=== PATIENT | male | born 1945 | race Hispanic/Latino ===

== ENCOUNTER 2018-08-24 04:02 | Inpatient (IN) | payer MEDICARE ==
[2018-08-24] MEDS ORDERED: XYLOCAINE 2% INFILTRATI ONE (04:25)
[2018-08-24] MEDS ORDERED: ATIVAN IV PRN (04:25)
[2018-08-24] MEDS ORDERED: NACL 0.9% IR ONE (04:25)
[2018-08-24 04:41] LABS: Hematocrit 41.3 % (35.5-45.6); Hemoglobin 14.2 gm/dl (11.8-15.2); Mean Corpuscular HGB Conc 34 % (32-34); Mean Corpuscular Volume 101 fl (84-94); Red Cell Distribution Width 13.8 % (13.2-15.2)
[2018-08-24 04:42] LABS: Platelet Count 82 K/mm3 (140-440)
--- NOTE | 2018-08-24 04:57 | XRay Report ---
PROCEDURE: LEFT FOREARM TECHNIQUE: LEFT forearm radiographs, AP and lateral views. CPT 02490 HISTORY: Trauma COMPARISONS: None . FINDINGS: Fracture (s) and/or Dislocation(s): None . Joint space(s): Normal . Soft tissues: Normal . Bone mineralization: Normal . Foreign bodies: None . IMPRESSION: Normal Examination . This document is electronically signed by Derick Sanchez MD., August 24 2018 04:55:02 AM ET
--- NOTE | 2018-08-24 04:58 | XRay Report ---
PROCEDURE: XR HAND 2V LT TECHNIQUE: LEFT hand radiographs, PA and lateral views. HISTORY: fall left hand laceration COMPARISONS: None . FINDINGS: Fracture (s) and/or Dislocation(s): There are nondisplaced fractures of the third distal phalanx. . There is no joint dislocation. Alignment: Normal . Joint space(s): There is advanced degenerative arthrosis of the first carpometacarpal joint. . Soft tissues: There is soft tissue swelling and laceration of the third digit. . Bone mineralization: Normal . Foreign bodies: None . IMPRESSION: There are nondisplaced fractures of the third distal phalanx. . There is no joint dislocation. There is advanced degenerative arthrosis of the first carpometacarpal joint. . There is soft tissue swelling and laceration of the third digit. . . This document is electronically signed by Derick Sanchez MD., August 24 2018 04:56:34 AM ET
--- NOTE | 2018-08-24 04:59 | XRay Report ---
PROCEDURE: XR KNEE 3V LT TECHNIQUE: Left knee radiographs, AP, lateral, and sunrise views. HISTORY: fall left knee pain COMPARISONS: None FINDINGS: Fracture (s) and/or Dislocation(s): None Alignment: Normal Joint space(s): There is near replacement hardware. The hardware is intact. Soft tissues: There is prepatellar soft tissue swelling. Bone mineralization: Normal Foreign bodies: None IMPRESSION: There is no fracture or dislocation. Knee replacement hardware is intact. Prepatellar soft tissue swe lling is noted. There is no joint effusion. This document is electronically signed by Derick Sanchez MD., August 24 2018 04:57:30 AM ET
[2018-08-24 05:02] LABS: Albumin 4.4 g/dL (3.9-5); Calcium 9.9 mg/dL (8.4-10.2)
[2018-08-24] MEDS ORDERED: BOOSTRIX IM ONE (05:38)
--- NOTE | 2018-08-24 05:50 | Event Note ---
Date: 08/24/18 Medical screening examination: 73-year-old gentleman, in outpatient detox for alcohol dependence, presenting with probable early withdrawal, and reported mechanical fall. Injuries include superficial chin abrasion, left forearm abrasion, significant avulsion/laceration of the left distal third digit, left knee contusion. Plan is to obtain basic laboratory studies, initiate alcohol withdrawal protocol, obtain CT scan of the brain, facial bones and cervical spine, EKG, and reassess. The left fingertip laceration was repaired by myself. The patient gave verbal consent for the procedure. 4 mL of 1% lidocaine without epinephrine were injected onto the proximal ulnar aspect of the third digit, at the carpometacarpal joint, performing a finger block. Then, the field was irrigated with sterile saline mixed with Betadine, 500 mL, as copious pressure. 4 interrupted 4-0 absorbable sutures were placed in the deep tissue. 13 interrupted 40 monofilament nonabsorbable sutures were placed on the finger tip laceration, length approximately 3.5 cm. Nursing team to apply Xeroform gauze, then clean, then finger immobilizer. X-ray of the left hand, left knee, left forearm negative for acute disease. Vital Signs 08/24/18 08/24/18 04:08 04:50 Temperature 97.6 F 98 F Pulse Rate 73 71 Respiratory 18 16 Rate Blood Pressure 123/71 Blood Pressure 141/65 [Right] O2 Sat by Pulse 98 100 Oximetry
--- NOTE | 2018-08-24 06:22 | Emergency Department Report ---
ED General Adult HPI - General Chief complaint: Wound/Laceration Stated complaint: Fall Time Seen by Provider: 08/24/18 06:01 Source: patient Mode of arrival: Ambulatory Limitations: No Limitations - History of Present Illness Initial comments: This is a 73-year-old male that was transported from [facility] where he has been since Tuesday and an alcohol detox program. He is giving differing accounts of his fall. He states he thinks it is Tuesday although he also states he has been [place] detox for 2-3 days. Parent lesion he told his family that he was in route to the bathroom and he slipped and fell on a wet floor. He tells me that he was in the shower when he slipped and fell. He cannot account for this difference in history. He was given Ativan on arrival. He was apparently quite shaky. He had a pair of a laceration of his finger by Dr. Henderson. It has been since dressed and splinted. The patient is awake and alert. However, he does give vague answers. He he denies impact to his head or neck or back pain. He is denying any antecedent problems. He is giving a different account of his toe injury than his family. He told the nurse that the injury occurred a week ago. His family states that it is new. His family states he has a history of hypertension and high cholesterol. -: Sudden Location: face, left, upper extremity, lower extremity Severity scale (0 -10): 0 Consistency: now resolved Improves with: none Worsens with: none Associated Symptoms: denies other symptoms, syncope (syncope is suspected) - Related Data Allergies Allergy/AdvReac Type Severity Reaction Status Date / Time No Known Allergies Allergy Verified 08/24/18 04:28 ED Review of Systems ROS: Stated complaint: Fall Other details as noted in HPI Constitutional: denies: chills, fever Eyes: denies: eye pain, eye discharge, vision change ENT: denies: ear pain, throat pain Respiratory: denies: cough, shortness of breath, wheezing Cardiovascular: denies: chest pain, palpitations Endocrine: no symptoms reported Gastrointestinal: denies: abdominal pain, nausea, diarrhea Genitourinary: denies: urgency, dysuria Musculoskeletal: as per HPI (toe and left middle finger pain). denies: back pain, joint swelling, arthralgia Skin: denies: rash, lesions Neurological: denies: headache, weakness, paresthesias Psychiatric: denies: anxiety, depression Hematological/Lymphatic: denies: easy bleeding, easy bruising ED Past Medical Hx - Past Medical History Hx Hypertension: Yes - Surgical History Past Surgical History?: Yes Additional Surgical History: L knee sx, 2014. back sx, 2017 - Social History Smoking Status: Never Smoker Substance Use Type: Alcohol ED Physical Exam - General Limitations: No Limitations General appearance: alert, in no apparent distress - Head Head exam: Present: atraumatic, normocephalic - Eye Eye exam: Present: normal appearance - ENT ENT exam: Present: mucous membranes moist, other (abrasion [place], no deformity, no mandibular pain. Free range of motion of the mandible) - Neck Neck exam: Present: normal inspection - Respiratory Respiratory exam: Present: normal lung sounds bilaterally. Absent: respiratory distress - Cardiovascular Cardiovascular Exam: Present: regular rate, normal rhythm. Absent: systolic murmur, diastolic murmur, rubs, gallop - GI/Abdominal GI/Abdominal exam: Present: soft, normal bowel sounds. Absent: distended, tenderness, guarding, rebound, rigid - Rectal Rectal exam: Present: deferred - Extremities Exam Extremities exam: Present: other (ecchymosis of the left little toe. No gross deformity. Skin is intact. Dressed and splinted left middle finger) - Back Exam Back exam: Present: normal inspection. Absent: CVA tenderness (R), CVA tenderness (L), muscle spasm, paraspinal tenderness, vertebral tenderness - Neurological Exam Neurological exam: Present: alert, oriented X3 (more or less), CN II-XII intact. Absent: motor sensory deficit - Psychiatric Psychiatric exam: Present: normal mood, flat affect - Skin Skin exam: Present: warm, dry, normal color. Absent: rash ED Course Vital Signs 08/24/18 08/24/18 04:08 04:50 Temperature 97.6 F 98 F Pulse Rate 73 71 Respiratory 18 16 Rate Blood Pressure 123/71 Blood Pressure 141/65 [Right] O2 Sat by Pulse 98 100 Oximetry - Reevaluation(s) Reevaluation #1: Patient will be given antibiotic coverage for his finger fracture. He'll be continued on a CIWA protocol. Discussed with hospitalist staff. He will be admitted by Dr. Huber. 08/24/18 07:52 ED Medical Decision Making - Lab Data Result diagrams: 08/24/18 04:30 08/24/18 04:30 Laboratory Results - last 24 hr 08/24/18 08/24/18 08/24/18 04:30 04:30 04:30 WBC 5.8 RBC 4.10 Hgb 14.2 Hct 41.3 MCV 101 H MCH 35 H MCHC 34 RDW 13.8 Plt Count 82 L Sodium 134 L Potassium 3.1 L Chloride 90.6 L Carbon Dioxide 31 H Anion Gap 16 BUN 27 H Creatinine 1.7 H Estimated GFR 40 BUN/Creatinine Ratio 16 Glucose 108 H Calcium 9.9 Magnesium 1.10 L Total Bilirubin 2.50 H AST 94 H ALT 97 H Alkaline Phosphatase 61 Total Creatine Kinase 289 H Total Protein 7.1 Albumin 4.4 Albumin/Globulin Ratio 1.6 Salicylates < 0.3 L Acetaminophen Plasma/Serum Alcohol 08/24/18 08/24/18 04:30 04:30 WBC RBC Hgb Hct MCV MCH MCHC RDW Plt Count Sodium Potassium Chloride Carbon Dioxide Anion Gap BUN Creatinine Estimated GFR BUN/Creatinine Ratio Glucose Calcium Magnesium Total Bilirubin AST ALT Alkaline Phosphatase Total Creatine Kinase Total Protein Albumin Albumin/Globulin Ratio Salicylates Acetaminophen < 5.0 L Plasma/Serum Alcohol < 0.01 - EKG Data -: EKG Interpreted by Ct EKG shows normal: sinus rhythm Rate: normal - EKG Data Interpretation: nonspecific ST-T wave tri, other (consider LVH, left axis deviation) - Radiology Data Radiology results: report reviewed (multiple reports are reviewed, chest x-ray is pending) Critical care attestation.: If time is entered above; I have spent that time in minutes in the direct care of this critically ill patient, excluding procedure time. ED Disposition Clinical Impression: Syncope and collapse, Acute encephalopathy, Hypokalemia, Hypomagnesemia, Renal insufficiency, Chronic liver disease, Thrombocytopenia Open fracture of finger of left hand Qualifiers: Encounter type: initial encounter Finger: middle finger Phalanx: distal Fracture alignment: nondisplaced Qualified Code(s): S62.663B - Nondisplaced fracture of distal phalanx of left middle finger, initial encounter for open fracture Fracture of toe of left foot Qualifiers: Encounter type: initial encounter Toe: unspecified toe Fracture type: closed Fracture alignment: nondisplaced Qualified Code(s): S92.912A - Unspecified fracture of left toe(s), initial encounter for closed fracture Disposition: DC-09 OP ADMIT IP TO THIS HOSP Is pt being admited?: Yes Does the pt Need Aspirin: No (hold aspirin now due to thrombocytopenia.) Condition: Stable Instructions: Syncope (ED) Referrals: KATHRYN KUHN SR, MD [Primary Care Provider] - 3-5 Days
[2018-08-24] MEDS ORDERED: NACL 0.9% 1000 ML 1,000 ML IV ONE (06:25)
[2018-08-24] MEDS ORDERED: MAGNESIUM SULFATE 2GM/50ML 2 GM/50 ML BAG IV ONE (06:25)
[2018-08-24] MEDS ORDERED: K-DUR PO ONE (06:25)
--- NOTE | 2018-08-24 06:44 | XRay Report ---
PROCEDURE: XR FOOT 3+V LT TECHNIQUE: 3 views of the left foot were obtained. HISTORY: deformity, bruise COMPARISONS: None FINDINGS: There is a mildly displaced obliquely oriented intra-articular chip fracture along the dorsal margin of the base of the middle phalanx of the second toe seen on the lateral view. It is not definitely se en on the AP and oblique views. There are no additional fractures. There is polyarticular arthritic c hanges in the midfoot with marginal spurring. There is a small plantar calcaneal spur. The soft tissu es otherwise are unremarkable. IMPRESSION: Mildly displaced obliquely oriented intra-articular chip fracture along the dorsal margin of the base of the middle phalanx of the second toe as described. This is of uncertain age. Correlation with cli nical exam needed. Polyarticular arthritic changes noted in the midfoot.. This document is electronically signed by Miguel Iniguez MD., August 24 2018 06:42:40 AM ET
--- NOTE | 2018-08-24 07:09 | Cat Scan Report ---
PROCEDURE: CT CERVICAL SPINE WO CON, CT HEAD/BRAIN WO CON, CT FACIAL BONES WO CON TECHNIQUE: Computerized tomography of the head, face and cervical spine was performed without contra st material. HISTORY: fall etoh withdrawal COMPARISONS: None. FINDINGS: Head/face CT: The ventricles, cisterns and sulci are proportionately enlarged, consistent with parenchymal volume l oss. No intra parenchymal or extra-axial mass, hemorrhage, or mass effect. Grimaldo and white-matter di fferentiation shows chronic sequela of microvascular angiopathy.. Normal spherical shape of the globes. Retrobulbar fat is unremarkable. Scattered areas of mucosal thi ckening within the paranasal sinuses without fluid level. No skull or facial fracture visualized. Cervical spine CT: There is degenerative straightening of the cervical spine. Moderate intervertebral disc space narrowi ng with associated endplate spondylosis and remodeling at C3-C4 through C6-C7. Vertebral body heights and intervertebral disc spaces are preserved. The atlantodens interval is normal and the odontoid pr ocess is intact. No fracture or gross malalignment. Facet joints are intact. The paraspinal soft tiss ues as well as the imaged mucosal spaces of the neck are remarkable for carotid calcifications. Incom plete evaluation of the lung apices is unremarkable. IMPRESSION: No acute intracranial abnormality. No fracture of the skull, face or cervical spine. This document is electronically signed by Matthew Recinos MD., August 24 2018 07:07:22 AM ET
[2018-08-24 07:55] LABS: INR 0.95 (0.87-1.13)
[2018-08-24 07:56] LABS: Partial Thromboplastin Time 22.5 Sec. (24.2-36.6)
--- NOTE | 2018-08-24 08:11 | XRay Report ---
AP CHEST : 08/24/18 04:02:00 CLINICAL: Hypertension. COMPARISON:None FINDINGS: Normal heart and pulmonary vessels. The lungs are normally expanded and clear. The bones and soft tissues are unremarkable. IMPRESSION: No acute cardiopulmonary process.
[2018-08-24] MEDS ORDERED: VITAMIN B-1 100 MG, FOLVITE 1 MG, INFUVITE 10 ML in NACL 0.9% 1000 ML 1,000 ML IV ONE (08:12)
[2018-08-24 09:32] LABS: Bilirubin,Urine NEG (Negative); Blood,Urine NEG (Negative); Color,Urine Yellow (Yellow); Urobilinogen,Urine < 2.0 mg/dL (<2.0)
[2018-08-24 09:47] LABS: Amphetamine Screen,Urine PRESUMPTIVE NEGATIVE; Cannabinoid Screen,Urine PRESUMPTIVE NEGATIVE; Cocaine Screen,Urine PRESUMPTIVE NEGATIVE; Methadone Screen,Urine PRESUMPTIVE NEGATIVE; Opiate Screen,Urine PRESUMPTIVE NEGATIVE
[2018-08-24] MEDS ORDERED: TYLENOL PO PRN ×2 (09:56)
--- NOTE | 2018-08-24 10:00 | History and Physical Report ---
History of Present Illness Date of examination: 08/24/18 Date of admission: 08/24/18 07:57 Chief complaint: History of fall at detox center History of present illness: 73-year-old male patient was transported from [facility] where he has been since Tuesday in an alcohol detox program. Center to the emergency room with history of fall , unsure how he fell , proper history not available , and sustained multiple superficial injuries Parent reports that he was going to the bathroom and he slipped and fell on a wet floor. And later he reports that he was in the shower when he slipped and fell. He cannot account for this difference in history. He was given Ativan on arrival. He was apparently quite shaky. He had a pair of a laceration of his finger in dressing and no other history available, In the ER patient had multiple imaging studies At the time of my evaluation patient is alert and awake, confused, mild tremulousness No history suggestive of chest pain or shortness of breath No history suggestive of nausea vomiting or abdominal pain Mild tremulousness probably alcohol withdrawal symptoms Past History Past Medical History: hypertension, hyperlipidemia, other (alcohol use) Past Surgical History: Other (left knee surgery, back surgery) Social history: lives with family, alcohol abuse, full code. denies: smoking Family history: hypertension Medications and Allergies Allergies Allergy/AdvReac Type Severity Reaction Status Date / Time No Known Allergies Allergy Verified 08/24/18 04:28 Home Medications Medication Instructions Recorded Confirmed Last Taken Type Aspirin 81 mg PO DAILY 08/24/18 08/24/18 Unknown History Folic Acid 1 mg PO DAILY 08/24/18 08/24/18 Unknown History Metoprolol 50 mg PO QPM 08/24/18 08/24/18 Unknown History Simvastatin 40 mg PO QPM 08/24/18 08/24/18 Unknown History Thiamine 100 mg PO DAILY 08/24/18 08/24/18 Unknown History amLODIPine 5 mg PO DAILY 08/24/18 08/24/18 Unknown History rOPINIRole 1 mg PO DAILY 08/24/18 08/24/18 Unknown History Active Meds: Active Medications Acetaminophen (Tylenol) 650 mg PO Q6H PRN PRN Reason: Pain, Mild (1-3) Acetaminophen (Tylenol) 650 mg PO Q4H PRN PRN Reason: Pain, Mild (1-3) Sodium Chloride (Nacl 0.9% 1000 Ml) 1,000 mls @ 125 mls/hr IV ONCE ONE Stop: 08/24/18 14:24 Last Admin: 08/24/18 07:13 Dose: 125 mls/hr Documented by: Thiamine HCl 100 mg/ Folic Acid 1 mg/ Multivitamins/Minerals 10 ml/ Sodium Chloride 1,011.2 mls @ 250 mls/hr IV ONCE ONE Stop: 08/24/18 12:14 Last Admin: 08/24/18 09:06 Dose: 250 mls/hr Documented by: Lorazepam (Ativan) 2 mg IV Q1HR PRN PRN Reason: CIWA-Ar 8-15 Lorazepam (Ativan) 4 mg IV Q1HR PRN PRN Reason: CIWA-Ar 16-25 Lorazepam (Ativan) 4 mg IV Q15MIN PRN PRN Reason: CIWA-Ar >25 Pantoprazole Sodium (Protonix) 40 mg PO QDAY [facility] Povidone Iodine (Betadine) 1 applic TP TID KATHIE Thiamine HCl (Vitamin B-1) 100 mg PO QDAY KATHIE Review of Systems Constitutional: no weight loss, no weight gain Ears, nose, mouth and throat: no nasal congestion, no nasal discharge Cardiovascular: no chest pain, no orthopnea, no palpitations Respiratory: no cough, no shortness of breath Gastrointestinal: no nausea, no vomiting Genitourinary Male: no dysuria, no flank pain Musculoskeletal: no myalgias, no arthritis Integumentary: no rash, no lesions Neurological: ataxia, gait dysfunction, other (Fall) Psychiatric: no anxiety, no depression Endocrine: no cold intolerance, no heat intolerance Hematologic/Lymphatic: no easy bruising, no easy bleeding Allergic/Immunologic: no urticaria, no allergic rhinitis Exam - Constitutional Vitals: Temp Pulse Resp BP Pulse Ox 98 F 67 18 111/69 96 08/24/18 04:50 08/24/18 09:05 08/24/18 09:05 08/24/18 09:05 08/24/18 09:05 General appearance: Present: mild distress, well-nourished, other (tremulousness) - EENT Eyes: Present: PERRL, EOM intact - Neck Neck: Present: supple, normal ROM - Respiratory Respiratory effort: normal Respiratory: bilateral: diminished, negative: rales, rhonchi, wheezing - Cardiovascular Rhythm: regular Heart Sounds: Present: S1 & S2 - Extremities Extremities: no ischemia Extremity abnormal: edema - Abdominal General gastrointestinal: Present: soft, non-tender, non-distended, normal bowel sounds - Integumentary Integumentary: Present: clear, warm - Musculoskeletal Musculoskeletal: generalized weakness - Psychiatric Psychiatric: appropriate mood/affect, cooperative, other (confused at times) - Neurologic Neurologic: moves all extremities Results - Labs CBC & Chem 7: 08/24/18 04:30 08/24/18 04:30 Labs: Abnormal lab results 08/24/18 08/24/18 08/24/18 Range/Units 04:30 04:30 04:30 MCV 101 H (84-94) fl MCH 35 H (28-32) pg Plt Count 82 L (140-440) K/mm3 APTT (24.2-36.6) Sec. Sodium 134 L (137-145) mmol/L Potassium 3.1 L (3.6-5.0) mmol/L Chloride 90.6 L (98-107) mmol/L Carbon Dioxide 31 H (22-30) mmol/L BUN 27 H (9-20) mg/dL Creatinine 1.7 H (0.8-1.5) mg/dL Glucose 108 H (75-100) mg/dL Magnesium 1.10 L (1.7-2.3) mg/dL Total Bilirubin 2.50 H (0.1-1.2) mg/dL AST 94 H (5-40) units/L ALT 97 H (7-56) units/L Ammonia (25-60) umol/L Total Creatine Kinase 289 H (55-170) units/L Salicylates < 0.3 L (2.8-20.0) mg/dL Acetaminophen (10.0-30.0) ug/mL 08/24/18 08/24/18 08/24/18 Range/Units 04:30 07:24 07:24 MCV (84-94) fl MCH (28-32) pg Plt Count (140-440) K/mm3 APTT 22.5 L (24.2-36.6) Sec. Sodium (137-145) mmol/L Potassium (3.6-5.0) mmol/L Chloride (98-107) mmol/L Carbon Dioxide (22-30) mmol/L BUN (9-20) mg/dL Creatinine (0.8-1.5) mg/dL Glucose (75-100) mg/dL Magnesium (1.7-2.3) mg/dL Total Bilirubin (0.1-1.2) mg/dL AST (5-40) units/L ALT (7-56) units/L Ammonia 24.0 L (25-60) umol/L Total Creatine Kinase (55-170) units/L Salicylates (2.8-20.0) mg/dL Acetaminophen < 5.0 L (10.0-30.0) ug/mL Assessment and Plan --Status post fall; Fall precautions, physical therapy occupational therapy, supportive care --Superficial injuries, multiple x-rays reviewed --Left foot :Mildly displaced displaced intra-articular chip fracture of left foot middle phalanx second digit Left hand; nondisplaced fractures of the third distal phalanx Orthopedic consult --Alcohol withdrawal symptoms; [facility] protocol Patient was transferred from alcohol detox center Maybe returning to the detox center once medically stable --Acute kidney injury; secondary to vasomotor nephropathy Gentle hydration, avoid nephrotoxins, consult nephrology if no improvement --Hypokalemia; replace per protocol and monitor levels --Hypomagnesemia replace per protocol and monitor levels --Metabolic encephalopathy; multifactorial; --Alcoholic liver disease/transaminitis; Closely monitor, --History of chronic alcohol use; advised to quit alcohol intake Thiamine and folic acid --DVT prophylaxis; Lovenox --Full CODE STATUS --DC planning. Case management, possible discharge back to Alcohol rehabilitation when medically stable
[2018-08-24 10:17] LABS: Benzodiazepines Screen,Urine PRESUMPTIVE POSITIVE
[2018-08-24] MEDS: PROTONIX PO SCH (11:00)
[2018-08-24] MEDS: VITAMIN B-1 PO SCH (11:00)
[2018-08-24] MEDS: TORADOL IV PRN (15:10)
[2018-08-24] MEDS: ATIVAN PO PRN (17:02)
[2018-08-24] MEDS ORDERED: NON-FORMULARY (Simvastatin 40 MG) PO SCH (18:00)
[2018-08-24] MEDS ORDERED: NON-FORMULARY (Metoprolol 50 MG) PO SCH (18:00)
[2018-08-24] MEDS: ATIVAN IV PRN ×2 (20:23→22:45)
[2018-08-24] MEDS: REQUIP PO SCH ×2 (20:24→23:00)
[2018-08-24] MEDS: PRAVACHOL PO SCH ×2 (20:24→23:00)
[2018-08-24] MEDS ORDERED: LOPRESSOR PO SCH (22:00)
[2018-08-24] MEDS: BETADINE TP SCH ×2 (22:43→23:00)
[2018-08-25] MEDS: ATIVAN PO PRN ×2 (00:23→21:45)
[2018-08-25] MEDS: HALDOL IV PRN ×2 (03:08→06:01)
[2018-08-25 05:49] LABS: Hematocrit 41.6 % (35.5-45.6); Hemoglobin 14.4 gm/dl (11.8-15.2); Mean Corpuscular HGB Conc 35 % (32-34); Mean Corpuscular Volume 101 fl (84-94); Red Blood Count 4.13 M/mm3 (3.65-5.03); Red Cell Distribution Width 13.5 % (13.2-15.2)
[2018-08-25 05:51] LABS: Platelet Count 73 K/mm3 (140-440)
[2018-08-25 06:10] LABS: Alanine Aminotransferase 102 units/L (7-56); Albumin 4.5 g/dL (3.9-5); BUN/Creatinine Ratio 16; Blood Urea Nitrogen 16 mg/dL (9-20); Hemolysis Index 8
[2018-08-25 06:36] LABS: Basophils % (Manual) 0 % (0.0-1.8); Total Cells Counted 100
[2018-08-25 06:37] LABS: Platelet Estimate Consistent w Auto; RBC Morphology Normal
[2018-08-25] MEDS ORDERED: K-DUR PO ONE ×2 (08:00→11:00)
[2018-08-25] MEDS: KCL 10MEQ/100ML 10 MEQ/100 ML BAG IV SCH ×4 (08:20→19:08)
[2018-08-25] MEDS ORDERED: MAGNESIUM SULFATE 4GM/100ML 4 GM/100 ML BAG IV ONE (08:58)
--- NOTE | 2018-08-25 09:04 | Progress Note ---
Assessment and Plan Assessment and plan: --Hypokalemia; replace per protocol and monitor levels --Hypomagnesemia replace per protocol and monitor levels --Status post fall; Fall precautions, physical therapy occupational therapy, supportive care --Superficial injuries, multiple x-rays reviewed --Left foot :Mildly displaced displaced intra-articular chip fracture of left foot middle phalanx second digit Left hand; nondisplaced fractures of the third distal phalanx Orthopedic consult --Alcohol withdrawal symptoms; [facility] protocol Patient was transferred from alcohol detox center Maybe returning to the detox center once medically stable --Acute kidney injury; secondary to vasomotor nephropathy Gentle hydration, avoid nephrotoxins, consult nephrology if no improvement --Metabolic encephalopathy; multifactorial; --Alcoholic liver disease/transaminitis; Closely monitor, --History of chronic alcohol use; advised to quit alcohol intake Thiamine and folic acid --DVT prophylaxis; Lovenox --Full CODE STATUS --DC planning. Case management, possible discharge back to Alcohol rehabilitation when medically stable History Interval history: Patient seen and examined medical records reviewed Patient is on [facility] protocol, sedated No new events reported by nursing staff Vital signs noted Hospitalist Physical - Constitutional Vitals: Temp Pulse Resp BP Pulse Ox 98.3 F 61 20 113/64 93 08/25/18 07:31 08/25/18 07:31 08/25/18 08:35 08/25/18 07:31 08/25/18 07:31 General appearance: Present: no acute distress, well-nourished, other (sedated) - EENT Eyes: Present: PERRL, EOM intact - Neck Neck: Present: supple, normal ROM - Respiratory Respiratory effort: normal Respiratory: bilateral: diminished, negative: rales, rhonchi, wheezing - Cardiovascular Rhythm: regular Heart Sounds: Present: S1 & S2 - Extremities Extremities: no ischemia, abnormal (dressing hand and foot) - Abdominal General gastrointestinal: soft, non-tender, non-distended, normal bowel sounds - Integumentary Integumentary: Present: clear, warm - Psychiatric Psychiatric: other (sedated) - Neurologic Neurologic: other (sedated. [facility] protocol) Results - Labs CBC & Chem 7: 08/25/18 05:12 08/25/18 05:12 Labs: Laboratory Last Values WBC 4.3 K/mm3 (4.5-11.0) L 08/25/18 05:12 RBC 4.13 M/mm3 (3.65-5.03) 08/25/18 05:12 Hgb 14.4 gm/dl (11.8-15.2) 08/25/18 05:12 Hct 41.6 % (35.5-45.6) 08/25/18 05:12 MCV 101 fl (84-94) H 08/25/18 05:12 MCH 35 pg (28-32) H 08/25/18 05:12 MCHC 35 % (32-34) H 08/25/18 05:12 RDW 13.5 % (13.2-15.2) 08/25/18 05:12 Plt Count 73 K/mm3 (140-440) L 08/25/18 05:12 [place] % (Auto) [employer] Deputy 08/25/18 05:12 Add Manual Diff Complete 08/25/18 05:12 Total Counted 100 08/25/18 05:12 Seg Neuts % (Manual) 60.0 % (40.0-70.0) 08/25/18 05:12 0 % 08/25/18 05:12 27.0 % (13.4-35.0) 08/25/18 05:12 Reactive Lymphs % (Man) 0 % 08/25/18 05:12 10.0 % (0.0-7.3) H 08/25/18 05:12 3.0 % (0.0-4.3) 08/25/18 05:12 0 % (0.0-1.8) 08/25/18 05:12 0 % 08/25/18 05:12 0 % 08/25/18 05:12 0 % 08/25/18 05:12 0 % 08/25/18 05:12 Nucleated RBC % Not Reportable 08/25/18 05:12 Seg Neutrophils # Man 2.6 K/mm3 (1.8-7.7) 08/25/18 05:12 Band Neutrophils # 0.0 K/mm3 08/25/18 05:12 1.2 K/mm3 (1.2-5.4) 08/25/18 05:12 Abs React Lymphs (Man) 0.0 K/mm3 08/25/18 05:12 0.4 K/mm3 (0.0-0.8) 08/25/18 05:12 0.1 K/mm3 (0.0-0.4) 08/25/18 05:12 0.0 K/mm3 (0.0-0.1) 08/25/18 05:12 0.0 K/mm3 08/25/18 05:12 0.0 K/mm3 08/25/18 05:12 0.0 K/mm3 08/25/18 05:12 Blast Cells # 0.0 K/mm3 08/25/18 05:12 WBC Morphology Not Reportable 08/25/18 05:12 Hypersegmented Neuts Not Reportable 08/25/18 05:12 Hyposegmented Neuts Not Reportable 08/25/18 05:12 Hypogranular Neuts Not Reportable 08/25/18 05:12 Not Reportable 08/25/18 05:12 Not Reportable 08/25/18 05:12 Not Reportable 08/25/18 05:12 Not Reportable 08/25/18 05:12 Not Reportable 08/25/18 05:12 Not Reportable 08/25/18 05:12 Consistent w auto 08/25/18 05:12 Not Reportable 08/25/18 05:12 Plt Clumps, EDTA Not Reportable 08/25/18 05:12 Not Reportable 08/25/18 05:12 Not Reportable 08/25/18 05:12 Not Reportable 08/25/18 05:12 Plt Morphology Comment Not Reportable 08/25/18 05:12 RBC Morphology Normal 08/25/18 05:12 Dimorphic RBCs Not Reportable 08/25/18 05:12 Not Reportable 08/25/18 05:12 Not Reportable 08/25/18 05:12 Not Reportable 08/25/18 05:12 Not Reportable 08/25/18 05:12 Not Reportable 08/25/18 05:12 Not Reportable 08/25/18 05:12 Not Reportable 08/25/18 05:12 Not Reportable 08/25/18 05:12 Not Reportable 08/25/18 05:12 Not Reportable 08/25/18 05:12 Not Reportable 08/25/18 05:12 Not Reportable 08/25/18 05:12 Not Reportable 08/25/18 05:12 Not Reportable 08/25/18 05:12 Not Reportable 08/25/18 05:12 Not Reportable 08/25/18 05:12 Not Reportable 08/25/18 05:12 Not Reportable 08/25/18 05:12 Not Reportable 08/25/18 05:12 Acanthocytes (Spur) Not Reportable 08/25/18 05:12 Rouleaux Not Reportable 08/25/18 05:12 Not Reportable 08/25/18 05:12 Not Reportable 08/25/18 05:12 Not Reportable 08/25/18 05:12 Not Reportable 08/25/18 05:12 Hem Pathologist Commnt No 08/25/18 05:12 PT 13.2 Sec. (12.2-14.9) 08/24/18 07:24 INR 0.95 (0.87-1.13) 08/24/18 07:24 APTT 22.5 Sec. (24.2-36.6) L 08/24/18 07:24 Sodium 143 mmol/L (137-145) D 08/25/18 05:12 Potassium 2.8 mmol/L (3.6-5.0) L* 08/25/18 05:12 Chloride 98.3 mmol/L (98-107) 08/25/18 05:12 Carbon Dioxide 29 mmol/L (22-30) 08/25/18 05:12 19 mmol/L 08/25/18 05:12 BUN 16 mg/dL (9-20) 08/25/18 05:12 1.0 mg/dL (0.8-1.5) 08/25/18 05:12 Estimated GFR > 60 ml/min 08/25/18 05:12 16 % 08/25/18 05:12 Glucose 103 mg/dL (75-100) H 08/25/18 05:12 Calcium 9.0 mg/dL (8.4-10.2) 08/25/18 05:12 Phosphorus 3.00 mg/dL (2.5-4.5) 08/25/18 05:12 Magnesium 1.10 mg/dL (1.7-2.3) L 08/25/18 05:12 2.50 mg/dL (0.1-1.2) H 08/25/18 05:12 AST 99 units/L (5-40) H 08/25/18 05:12 ALT 102 units/L (7-56) H 08/25/18 05:12 50 units/L (35-129) 08/25/18 05:12 24.0 umol/L (25-60) L 08/24/18 07:24 289 units/L (55-170) H 08/24/18 04:30 < 0.010 ng/mL (0.00-0.029) 08/24/18 07:24 NT-Pro-B Natriuret Pep 243.5 pg/mL (0-900) 08/24/18 07:24 7.3 g/dL (6.3-8.2) 08/25/18 05:12 4.5 g/dL (3.9-5) 08/25/18 05:12 1.6 % 08/25/18 05:12 Yellow (Yellow) 08/24/18 Unknown Slightly-cloudy (Clear) 08/24/18 Unknown 6.0 (5.0-7.0) 08/24/18 Unknown Ur Specific [place] 1.021 (1.003-1.030) 08/24/18 Unknown 30 mg/dl mg/dL (Negative) 08/24/18 Unknown Neg mg/dL (Negative) 08/24/18 Unknown Tr mg/dL (Negative) 08/24/18 Unknown Neg (Negative) 08/24/18 Unknown Neg (Negative) 08/24/18 Unknown Neg (Negative) 08/24/18 Unknown < 2.0 mg/dL (<2.0) 08/24/18 Unknown Ur Leukocyte Esterase Neg (Negative) 08/24/18 Unknown 2.0 /HPF (0.0-6.0) 08/24/18 Unknown 1.0 /HPF (0.0-6.0) 08/24/18 Unknown Salicylates < 0.3 mg/dL (2.8-20.0) L 08/24/18 04:30 Presumptive negative 08/24/18 Unknown Presumptive negative 08/24/18 Unknown Acetaminophen < 5.0 ug/mL (10.0-30.0) L 08/24/18 04:30 Ur Barbiturates Screen Presumptive negative 08/24/18 Unknown Ur Phencyclidine Scrn Presumptive negative 08/24/18 Unknown Ur Amphetamines Screen Presumptive negative 08/24/18 Unknown U Benzodiazepines Scrn Presumptive positive 08/24/18 Unknown Presumptive negative 08/24/18 Unknown U Marijuana (THC) Screen Presumptive negative 08/24/18 Unknown Disclamer 08/24/18 Unknown Plasma/Serum Alcohol < 0.01 % (0-0.07) 08/24/18 04:30 Active Medications - Current Medications Current Medications: Generic Name Dose Route Start Last Admin Trade Name Freq PRN Reason Stop Dose Admin Acetaminophen 650 mg 08/24/18 09:56 08/24/18 10:58 Tylenol PO 650 mg Q4H PRN Administration Pain, Mild (1-3) Haloperidol Lactate 2 mg 08/25/18 09:01 Haldol IV Q6H PRN Unrespon. to mult. doses BZD's Potassium Chloride 10 meq in 100 mls @ 100 mls/hr 08/25/18 08:00 08/25/18 08:20 Kcl 10meq/100ml IV 08/25/18 11:59 100 mls/hr Q1H KATHIE Administration Magnesium Sulfate 4 gm in 100 mls @ 25 mls/hr 08/25/18 08:58 Magnesium Sulfate 4gm/100ml IV 08/25/18 12:57 ONCE ONE Ketorolac Tromethamine 15 mg 08/24/18 15:00 08/24/18 15:10 Toradol IV 08/29/18 14:59 15 mg Q6H PRN Administration Pain, Mild (1-3) Lorazepam 2 mg 08/24/18 04:25 Ativan IV Q1HR PRN CIWA-Ar 8-15 Lorazepam 4 mg 08/24/18 04:25 08/24/18 22:45 Ativan IV 4 mg Q1HR PRN Administration CIWA-Ar 16-25 Lorazepam 4 mg 08/24/18 04:25 08/25/18 00:49 Ativan IV 4 mg Q15MIN PRN Administration CIWA-Ar >25 Lorazepam 0.5 mg 08/24/18 16:22 08/25/18 00:23 Ativan PO 0.5 mg Q6H PRN Administration Agitation Lorazepam 0.5 mg 08/24/18 16:23 Ativan PO Q4H PRN Agitation Magnesium Oxide 400 mg 08/25/18 10:00 Mag-Ox PO QDAY KATHIE Metoprolol Tartrate 50 mg 08/25/18 10:00 Lopressor PO BID KATHIE Pantoprazole Sodium 40 mg 08/24/18 10:00 08/24/18 11:00 Protonix PO 40 mg QDAY KATHIE Administration Potassium Chloride 40 meq 08/25/18 11:00 K-Dur PO 08/25/18 11:01 ONCE ONE Povidone Iodine 1 applic 08/24/18 08:00 08/24/18 23:00 Betadine TP Not Given TID KATHIE Pravastatin Sodium 80 mg 08/24/18 22:00 08/24/18 23:00 Pravachol PO Not Given QHS [facility] Ropinirole HCl 1 mg 08/24/18 22:00 08/24/18 23:00 Requip PO Not Given QHS [facility] Thiamine HCl 100 mg 08/24/18 11:00 08/24/18 11:00 Vitamin B-1 PO 100 mg QDAY KATHIE Administration Thiamine HCl 100 mg 08/25/18 10:00 Vitamin B-1 PO QDAY KATHIE
[2018-08-25] MEDS ORDERED: VITAMIN B-1 PO SCH (10:00)
[2018-08-25] MEDS ORDERED: ROPINIROLE 1 MG PO SCH (10:00)
[2018-08-25] MEDS ORDERED: NON-FORMULARY (Thiamine 100 MG) PO SCH (10:00)
[2018-08-25] MEDS: MAG-OX PO SCH (11:42)
[2018-08-25] MEDS: BACTROBAN 2% TP SCH ×2 (11:43→21:44)
[2018-08-25] MEDS: PROTONIX PO SCH (11:47)
[2018-08-25] MEDS: VITAMIN B-1 PO SCH (11:47)
[2018-08-25] MEDS: LOPRESSOR PO SCH ×3 (12:29→21:58)
--- NOTE | 2018-08-25 14:50 | Consultation ---
History of Present Illness - Reason for Consult Consult date: 08/25/18 Reason for consult: Mental Health Evaluation Requesting physician: AYDE KEMP - Chief Complaint Chief complaint: "The patient was sleep" - History of Present Psychiatric Illness 73 y.o. white male who presented to the ER for a fall. Psychiatry was consulted to see the patient for ETOH/detox. Today the patient was sleep, so collateral information was obtained from his son Phillip Power who was at the bedside. He stated that his father was a patient at [facility] and experienced a fall prior to coming to the ER. He stated that his father has a hx of alcohol abuse for more than 50 yrs. He stated that his father was "functional" during his yrs of drinking (etoh). He denied that his father has a mood/psychotic do's when asked. He stated that his father isn't sleeping at night. He stated that he was given information for termite technician rehab services by the [employer] for his father. Medications and Allergies Allergies Allergy/AdvReac Type Severity Reaction Status Date / Time No Known Allergies Allergy Verified 08/24/18 04:28 Home Medications Medication Instructions Recorded Confirmed Last Taken Type Aspirin 81 mg PO DAILY 08/24/18 08/24/18 Unknown History Folic Acid 1 mg PO DAILY 08/24/18 08/24/18 Unknown History Metoprolol 50 mg PO QPM 08/24/18 08/24/18 Unknown History Simvastatin 40 mg PO QPM 08/24/18 08/24/18 Unknown History Thiamine 100 mg PO DAILY 08/24/18 08/24/18 Unknown History amLODIPine 5 mg PO DAILY 08/24/18 08/24/18 Unknown History rOPINIRole 1 mg PO DAILY 08/24/18 08/24/18 Unknown History Active Meds: Active Medications Acetaminophen (Tylenol) 650 mg PO Q4H PRN PRN Reason: Pain, Mild (1-3) Last Admin: 08/24/18 10:58 Dose: 650 mg Documented by: Haloperidol Lactate (Haldol) 2 mg IV Q6H PRN PRN Reason: Unrespon. to mult. doses BZD's Ketorolac Tromethamine (Toradol) 15 mg IV Q6H PRN PRN Reason: Pain, Mild (1-3) Stop: 08/29/18 14:59 Last Admin: 08/24/18 15:10 Dose: 15 mg Documented by: Lorazepam (Ativan) 2 mg IV Q1HR PRN PRN Reason: CIWA-Ar 8-15 Lorazepam (Ativan) 4 mg IV Q1HR PRN PRN Reason: CIWA-Ar 16-25 Last Admin: 08/24/18 22:45 Dose: 4 mg Documented by: Lorazepam (Ativan) 4 mg IV Q15MIN PRN PRN Reason: CIWA-Ar >25 Last Admin: 08/25/18 00:49 Dose: 4 mg Documented by: Lorazepam (Ativan) 0.5 mg PO Q4H PRN PRN Reason: Agitation Magnesium Oxide (Mag-Ox) 400 mg PO QDAY [facility] Last Admin: 08/25/18 11:42 Dose: 400 mg Documented by: Metoprolol Tartrate (Lopressor) 50 mg PO BID [facility] Last Admin: 08/25/18 12:29 Dose: 50 mg Documented by: Mupirocin (Bactroban 2%) 1 applic TP BID [facility] Last Admin: 08/25/18 11:43 Dose: 1 applic Documented by: Pantoprazole Sodium (Protonix) 40 mg PO QDAY [facility] Last Admin: 08/25/18 11:47 Dose: 40 mg Documented by: Pravastatin Sodium (Pravachol) 80 mg PO QHS [facility] Last Admin: 08/24/18 23:00 Dose: Not Given Documented by: Ropinirole HCl (Requip) 1 mg PO QHS [facility] Last Admin: 08/24/18 23:00 Dose: Not Given Documented by: Thiamine HCl (Vitamin B-1) 100 mg PO QDAY [facility] Last Admin: 08/25/18 11:47 Dose: 100 mg Documented by: Past psychiatric history - Past Medical History Past Medical History: hypertension, other Past Surgical History: Other (Back and knee surgery per the notes) - past Psychiatric treatment and history psychiatric treatment history: Hx of Alcoholism. Fam hx of alcoholism. - Social History Social history: Lives alone Mental Status Exam - Vital signs Last Vital Signs Temp 97.4 F L 08/25/18 12:16 Pulse 60 08/25/18 12:29 Resp 17 08/25/18 12:16 BP 161/78 08/25/18 12:29 Pulse Ox 96 08/25/18 12:16 - Exam Narrative exam: Unable to complete the MSE because of the patient's condition. Results Result Diagrams: 08/25/18 05:12 08/25/18 19:35 Abnormal lab results 08/25/18 08/25/18 Range/Units 05:12 05:12 WBC 4.3 L (4.5-11.0) K/mm3 MCV 101 H (84-94) fl MCH 35 H (28-32) pg MCHC 35 H (32-34) % Plt Count 73 L (140-440) K/mm3 Monocytes % (Manual) 10.0 H (0.0-7.3) % Potassium 2.8 L* (3.6-5.0) mmol/L Glucose 103 H (75-100) mg/dL Magnesium 1.10 L (1.7-2.3) mg/dL Total Bilirubin 2.50 H (0.1-1.2) mg/dL AST 99 H (5-40) units/L ALT 102 H (7-56) units/L All other labs normal. Assessment and Plan Assessment and plan: Impression: Alcohol Use DO. Insomnia per collateral information. Today the patient was sleep. Collateral information was gathered from family members. Recommendation/Plan: Start Melatonin 5 mg PO HS for sleep. Continue to monitor the patient for etoh withdrawals. The patient can follow up with his PCP once discharged. Dispo: The patient's family was given information for termite technician rehab services once medically clear. Psy sign off. Staffed with Dr Ravi Campbell.
--- NOTE | 2018-08-25 14:56 | Consultation ---
History of Present Illness - [facility] Consult date: 08/25/18 Consult reason: joint pain, fracture History of present illness: [age]-year-old male who complained of pain at multiple locations after a fall at a local alcoholic detox facility. Currently patient is sedated in bed family at bedside Past History Past Medical History: other Past Surgical History: Other (left knee surgery, back surgery) Social history: lives with family, alcohol abuse, full code. denies: smoking Family history: hypertension Medications and Allergies Allergies Allergy/AdvReac Type Severity Reaction Status Date / Time No Known Allergies Allergy Verified 08/24/18 04:28 Home Medications Medication Instructions Recorded Confirmed Last Taken Type Aspirin 81 mg PO DAILY 08/24/18 08/24/18 Unknown History Folic Acid 1 mg PO DAILY 08/24/18 08/24/18 Unknown History Metoprolol 50 mg PO QPM 08/24/18 08/24/18 Unknown History Simvastatin 40 mg PO QPM 08/24/18 08/24/18 Unknown History Thiamine 100 mg PO DAILY 08/24/18 08/24/18 Unknown History amLODIPine 5 mg PO DAILY 08/24/18 08/24/18 Unknown History rOPINIRole 1 mg PO DAILY 08/24/18 08/24/18 Unknown History Active Meds: Active Medications Acetaminophen (Tylenol) 650 mg PO Q4H PRN PRN Reason: Pain, Mild (1-3) Last Admin: 08/24/18 10:58 Dose: 650 mg Documented by: Haloperidol Lactate (Haldol) 2 mg IV Q6H PRN PRN Reason: Unrespon. to mult. doses BZD's Ketorolac Tromethamine (Toradol) 15 mg IV Q6H PRN PRN Reason: Pain, Mild (1-3) Stop: 08/29/18 14:59 Last Admin: 08/24/18 15:10 Dose: 15 mg Documented by: Lorazepam (Ativan) 2 mg IV Q1HR PRN PRN Reason: CIWA-Ar 8-15 Lorazepam (Ativan) 4 mg IV Q1HR PRN PRN Reason: CIWA-Ar 16-25 Last Admin: 08/24/18 22:45 Dose: 4 mg Documented by: Lorazepam (Ativan) 4 mg IV Q15MIN PRN PRN Reason: CIWA-Ar >25 Last Admin: 08/25/18 00:49 Dose: 4 mg Documented by: Lorazepam (Ativan) 0.5 mg PO Q4H PRN PRN Reason: Agitation Magnesium Oxide (Mag-Ox) 400 mg PO QDAY [facility] Last Admin: 08/25/18 11:42 Dose: 400 mg Documented by: Metoprolol Tartrate (Lopressor) 50 mg PO BID [facility] Last Admin: 08/25/18 12:29 Dose: 50 mg Documented by: Mupirocin (Bactroban 2%) 1 applic TP BID [facility] Last Admin: 08/25/18 11:43 Dose: 1 applic Documented by: Pantoprazole Sodium (Protonix) 40 mg PO QDAY [facility] Last Admin: 08/25/18 11:47 Dose: 40 mg Documented by: Pravastatin Sodium (Pravachol) 80 mg PO QHS [facility] Last Admin: 08/24/18 23:00 Dose: Not Given Documented by: Ropinirole HCl (Requip) 1 mg PO QHS [facility] Last Admin: 08/24/18 23:00 Dose: Not Given Documented by: Thiamine HCl (Vitamin B-1) 100 mg PO QDAY [facility] Last Admin: 08/25/18 11:47 Dose: 100 mg Documented by: Physical Examination - Physical exam Narrative exam: At the left third finger patient is noted to have a sutured laceration along the distal phalanx is no sign of infection there is good capillary refill patient is tender on palpation no deformities were noted At the left foot patient is noted to have some bruising to the second toe with chronic claw toes noted at the second third and fourth toes At the left knee - +ecchymotic area anterior, patella/exten mech ok Plain x-rays were reviewed by me and revealed a nondisplaced fracture of the middle phalanx distal condyle...left knee - no acute findings Assessment and Plan Status post fall with multiple soft tissue contusions and laceration and a nondisplaced fracture of the left third finger Recommend splinting left hand patient can start physical therapy once he is less sedated
[2018-08-25] MEDS ORDERED: MILK OF MAGNESIA PO PRN (18:27)
[2018-08-25] MEDS ORDERED: MILK OF MAGNESIA PO ONE (20:00)
[2018-08-25] MEDS: REQUIP PO SCH (21:45)
[2018-08-25] MEDS: PRAVACHOL PO SCH (21:45)
[2018-08-25] MEDS ORDERED: APRESOLINE IV PRN (21:58)
[2018-08-25] MEDS: MELATONIN PO SCH (22:12)
[2018-08-26] MEDS: ATIVAN IV PRN ×3 (00:33→07:48)
[2018-08-26] MEDS: HALDOL IV PRN (02:02)
[2018-08-26 06:11] LABS: BUN/Creatinine Ratio 18; Blood Urea Nitrogen 14 mg/dL (9-20); Calcium 9.2 mg/dL (8.4-10.2); Hemolysis Index 6
--- NOTE | 2018-08-26 07:33 | Progress Note ---
Assessment and Plan Assessment and plan: --Alcohol withdrawal symptoms; hold [facility] protocol IV Ativan as needed for alcohol withdrawal symptoms and agitation Physical therapy as tolerated, supportive care --Acute kidney injury; resolved, secondary to vasomotor nephropathy Gentle hydration, avoid nephrotoxins, --Metabolic encephalopathy; multifactorial; mainly due to alcohol withdrawal Patient is more alert --Hypokalemia; corrected --Hypomagnesemia replace per protocol and monitor levels --Status post fall; Fall precautions, physical therapy occupational therapy, supportive care --Superficial injuries, multiple x-rays reviewed --Left foot :Mildly displaced displaced intra-articular chip fracture of left foot middle phalanx second digit Left hand; nondisplaced fractures of the third distal phalanx Orthopedic evaluated the patient, splint applied, physical therapy --Alcoholic liver disease/transaminitis; Closely monitor, --H/O Chronic alcohol use; advised to quit,Thiamine and folic acid --DVT prophylaxis; Lovenox --Physical therapy and occupational therapy --DC planning, acute versus subacute rehabilitation versus home with home health in stable --Full CODE STATUS Plan of care reviewed with the family and the nurse History Interval history: Patient seen and examined medical records reviewed Patient had rough night, this morning patient is sleeping easily awakens No new complaints Vital signs noted Hospitalist Physical - Constitutional Vitals: Temp Pulse Resp BP Pulse Ox 97.9 F 60 20 177/65 94 08/26/18 02:00 08/26/18 02:00 08/26/18 02:00 08/26/18 02:00 08/26/18 02:00 General appearance: Present: no acute distress, well-nourished, other (sedated) - EENT Eyes: Present: PERRL, EOM intact - Neck Neck: Present: supple, normal ROM - Respiratory Respiratory effort: normal Respiratory: bilateral: diminished, negative: rales, rhonchi, wheezing - Cardiovascular Rhythm: regular Heart Sounds: Present: S1 & S2 - Extremities Extremities: no ischemia, No edema - Abdominal General gastrointestinal: soft, non-tender, non-distended, normal bowel sounds - Integumentary Integumentary: Present: clear, warm - Psychiatric Psychiatric: appropriate mood/affect, cooperative - Neurologic Neurologic: CNII-XII intact, moves all extremities Results - Labs CBC & Chem 7: 08/25/18 05:12 08/26/18 04:53 Labs: Laboratory Last Values WBC 4.3 K/mm3 (4.5-11.0) L 08/25/18 05:12 RBC 4.13 M/mm3 (3.65-5.03) 08/25/18 05:12 Hgb 14.4 gm/dl (11.8-15.2) 08/25/18 05:12 Hct 41.6 % (35.5-45.6) 08/25/18 05:12 MCV 101 fl (84-94) H 08/25/18 05:12 MCH 35 pg (28-32) H 08/25/18 05:12 MCHC 35 % (32-34) H 08/25/18 05:12 RDW 13.5 % (13.2-15.2) 08/25/18 05:12 Plt Count 73 K/mm3 (140-440) L 08/25/18 05:12 [place] % (Auto) [employer] 08/25/18 05:12 Add Manual Diff Complete 08/25/18 05:12 Total Counted 100 08/25/18 05:12 Seg Neuts % (Manual) 60.0 % (40.0-70.0) 08/25/18 05:12 0 % 08/25/18 05:12 27.0 % (13.4-35.0) 08/25/18 05:12 Reactive Lymphs % (Man) 0 % 08/25/18 05:12 10.0 % (0.0-7.3) H 08/25/18 05:12 3.0 % (0.0-4.3) 08/25/18 05:12 0 % (0.0-1.8) 08/25/18 05:12 0 % 08/25/18 05:12 0 % 08/25/18 05:12 0 % 08/25/18 05:12 0 % 08/25/18 05:12 Nucleated RBC % Not Reportable 08/25/18 05:12 Seg Neutrophils # Man 2.6 K/mm3 (1.8-7.7) 08/25/18 05:12 Band Neutrophils # 0.0 K/mm3 08/25/18 05:12 1.2 K/mm3 (1.2-5.4) 08/25/18 05:12 Abs React Lymphs (Man) 0.0 K/mm3 08/25/18 05:12 0.4 K/mm3 (0.0-0.8) 08/25/18 05:12 0.1 K/mm3 (0.0-0.4) 08/25/18 05:12 0.0 K/mm3 (0.0-0.1) 08/25/18 05:12 0.0 K/mm3 08/25/18 05:12 0.0 K/mm3 08/25/18 05:12 0.0 K/mm3 08/25/18 05:12 Blast Cells # 0.0 K/mm3 08/25/18 05:12 WBC Morphology Not Reportable 08/25/18 05:12 Hypersegmented Neuts Not Reportable 08/25/18 05:12 Hyposegmented Neuts Not Reportable 08/25/18 05:12 Hypogranular Neuts Not Reportable 08/25/18 05:12 Not Reportable 08/25/18 05:12 Not Reportable 08/25/18 05:12 Not Reportable 08/25/18 05:12 Not Reportable 08/25/18 05:12 Not Reportable 08/25/18 05:12 Not Reportable 08/25/18 05:12 Consistent w auto 08/25/18 05:12 Not Reportable 08/25/18 05:12 Plt Clumps, EDTA Not Reportable 08/25/18 05:12 Not Reportable 08/25/18 05:12 Not Reportable 08/25/18 05:12 Not Reportable 08/25/18 05:12 Plt Morphology Comment Not Reportable 08/25/18 05:12 RBC Morphology Normal 08/25/18 05:12 Dimorphic RBCs Not Reportable 08/25/18 05:12 Not Reportable 08/25/18 05:12 Not Reportable 08/25/18 05:12 Not Reportable 08/25/18 05:12 Not Reportable 08/25/18 05:12 Not Reportable 08/25/18 05:12 Not Reportable 08/25/18 05:12 Not Reportable 08/25/18 05:12 Not Reportable 08/25/18 05:12 Not Reportable 08/25/18 05:12 Not Reportable 08/25/18 05:12 Not Reportable 08/25/18 05:12 Not Reportable 08/25/18 05:12 Not Reportable 08/25/18 05:12 Not Reportable 08/25/18 05:12 Not Reportable 08/25/18 05:12 Not Reportable 08/25/18 05:12 Not Reportable 08/25/18 05:12 Not Reportable 08/25/18 05:12 Not Reportable 08/25/18 05:12 Acanthocytes (Spur) Not Reportable 08/25/18 05:12 Rouleaux Not Reportable 08/25/18 05:12 Not Reportable 08/25/18 05:12 Not Reportable 08/25/18 05:12 Not Reportable 08/25/18 05:12 Not Reportable 08/25/18 05:12 Hem Pathologist Commnt No 08/25/18 05:12 PT 13.2 Sec. (12.2-14.9) 08/24/18 07:24 INR 0.95 (0.87-1.13) 08/24/18 07:24 APTT 22.5 Sec. (24.2-36.6) L 08/24/18 07:24 Sodium 140 mmol/L (137-145) 08/26/18 04:53 Potassium 3.6 mmol/L (3.6-5.0) 08/26/18 04:53 Chloride 99.8 mmol/L (98-107) 08/26/18 04:53 Carbon Dioxide 28 mmol/L (22-30) 08/26/18 04:53 16 mmol/L 08/26/18 04:53 BUN 14 mg/dL (9-20) 08/26/18 04:53 0.8 mg/dL (0.8-1.5) 08/26/18 04:53 Estimated GFR > 60 ml/min 08/26/18 04:53 18 % 08/26/18 04:53 Glucose 117 mg/dL (75-100) H 08/26/18 04:53 Calcium 9.2 mg/dL (8.4-10.2) 08/26/18 04:53 Phosphorus 3.00 mg/dL (2.5-4.5) 08/25/18 05:12 Magnesium 1.60 mg/dL (1.7-2.3) L 08/26/18 04:53 2.50 mg/dL (0.1-1.2) H 08/25/18 05:12 AST 99 units/L (5-40) H 08/25/18 05:12 ALT 102 units/L (7-56) H 08/25/18 05:12 50 units/L (35-129) 08/25/18 05:12 24.0 umol/L (25-60) L 08/24/18 07:24 289 units/L (55-170) H 08/24/18 04:30 < 0.010 ng/mL (0.00-0.029) 08/24/18 07:24 NT-Pro-B Natriuret Pep 243.5 pg/mL (0-900) 08/24/18 07:24 7.3 g/dL (6.3-8.2) 08/25/18 05:12 4.5 g/dL (3.9-5) 08/25/18 05:12 1.6 % 08/25/18 05:12 Yellow (Yellow) 08/24/18 Unknown Slightly-cloudy (Clear) 08/24/18 Unknown 6.0 (5.0-7.0) 08/24/18 Unknown Ur Specific [place] 1.021 (1.003-1.030) 08/24/18 Unknown 30 mg/dl mg/dL (Negative) 08/24/18 Unknown Neg mg/dL (Negative) 08/24/18 Unknown Tr mg/dL (Negative) 08/24/18 Unknown Neg (Negative) 08/24/18 Unknown Neg (Negative) 08/24/18 Unknown Neg (Negative) 08/24/18 Unknown < 2.0 mg/dL (<2.0) 08/24/18 Unknown Ur Leukocyte Esterase Neg (Negative) 08/24/18 Unknown 2.0 /HPF (0.0-6.0) 08/24/18 Unknown 1.0 /HPF (0.0-6.0) 08/24/18 Unknown Salicylates < 0.3 mg/dL (2.8-20.0) L 08/24/18 04:30 Presumptive negative 08/24/18 Unknown Presumptive negative 08/24/18 Unknown Acetaminophen < 5.0 ug/mL (10.0-30.0) L 08/24/18 04:30 Ur Barbiturates Screen Presumptive negative 08/24/18 Unknown Ur Phencyclidine Scrn Presumptive negative 08/24/18 Unknown Ur Amphetamines Screen Presumptive negative 08/24/18 Unknown U Benzodiazepines Scrn Presumptive positive 08/24/18 Unknown Presumptive negative 08/24/18 Unknown U Marijuana (THC) Screen Presumptive negative 08/24/18 Unknown Disclamer 08/24/18 Unknown Plasma/Serum Alcohol < 0.01 % (0-0.07) 08/24/18 04:30 Active Medications - Current Medications Current Medications: Generic Name Dose Route Start Last Admin Trade Name Freq PRN Reason Stop Dose Admin Acetaminophen 650 mg 08/24/18 09:56 08/24/18 10:58 Tylenol PO 650 mg Q4H PRN Administration Pain, Mild (1-3) Haloperidol Lactate 2 mg 08/25/18 09:01 08/26/18 02:02 Haldol IV 2 mg Q6H PRN Administration Unrespon. to mult. doses BZD's Hydralazine HCl 10 mg 08/25/18 21:58 Apresoline IV Q4HR PRN Blood Pressure Magnesium Sulfate 2 gm in 50 mls @ 25 mls/hr 08/26/18 07:18 Magnesium Sulfate 2gm/50ml IV 08/26/18 09:17 ONCE ONE Ketorolac Tromethamine 15 mg 08/24/18 15:00 08/24/18 15:10 Toradol IV 08/29/18 14:59 15 mg Q6H PRN Administration Pain, Mild (1-3) Lorazepam 2 mg 08/24/18 04:25 08/26/18 04:39 Ativan IV 2 mg Q1HR PRN Administration CIWA-Ar 8-15 Lorazepam 4 mg 08/24/18 04:25 08/24/18 22:45 Ativan IV 4 mg Q1HR PRN Administration CIWA-Ar 16-25 Lorazepam 4 mg 08/24/18 04:25 08/25/18 00:49 Ativan IV 4 mg Q15MIN PRN Administration CIWA-Ar >25 Lorazepam 0.5 mg 08/24/18 16:23 08/25/18 21:45 Ativan PO 0.5 mg Q4H PRN Administration Agitation Magnesium Hydroxide 30 ml 08/25/18 18:27 Milk Of Magnesia PO QDAY PRN Constipation Magnesium Oxide 400 mg 08/25/18 10:00 08/25/18 11:42 Mag-Ox PO 400 mg QDAY KATHIE Administration Melatonin 5 mg 08/25/18 22:00 08/25/18 22:12 Melatonin PO 5 mg QHS KATHIE Administration Metoprolol Tartrate 50 mg 08/25/18 10:00 08/25/18 21:58 Lopressor PO Not Given BID KATHIE Mupirocin 1 applic 08/25/18 11:00 08/25/18 21:44 Bactroban 2% TP 1 applic BID KATHIE Administration Pantoprazole Sodium 40 mg 08/24/18 10:00 08/25/18 11:47 Protonix PO 40 mg QDAY KATHIE Administration Pravastatin Sodium 80 mg 08/24/18 22:00 08/25/18 21:45 Pravachol PO 80 mg QHS KATHIE Administration Ropinirole HCl 1 mg 08/24/18 22:00 08/25/18 21:45 Requip PO 1 mg QHS KATHIE Administration Thiamine HCl 100 mg 08/24/18 11:00 08/25/18 11:47 Vitamin B-1 PO 100 mg QDAY KATHIE Administration
[2018-08-26] MEDS ORDERED: MAGNESIUM SULFATE 2GM/50ML 2 GM/50 ML BAG IV ONE (08:00)
[2018-08-26] MEDS: VITAMIN B-1 PO SCH (09:18)
[2018-08-26] MEDS: MAG-OX PO SCH (09:18)
[2018-08-26] MEDS: LOPRESSOR PO SCH ×2 (09:18→22:00)
[2018-08-26] MEDS: PROTONIX PO SCH (09:18)
[2018-08-26] MEDS: BACTROBAN 2% TP SCH ×2 (10:47→22:01)
[2018-08-26] MEDS: REQUIP PO SCH (22:00)
[2018-08-26] MEDS: PRAVACHOL PO SCH (22:01)
[2018-08-26] MEDS: MELATONIN PO SCH (22:01)
[2018-08-26] MEDS: ATIVAN PO PRN (22:07)
[2018-08-27] MEDS: HALDOL IV PRN (02:05)
[2018-08-27 04:41] LABS: Alanine Aminotransferase 113 units/L (7-56); Albumin 4.1 g/dL (3.9-5); BUN/Creatinine Ratio 16; Bilirubin,Direct 0.4 mg/dL (0-0.2); Blood Urea Nitrogen 16 mg/dL (9-20); Calcium 9.1 mg/dL (8.4-10.2); Hemolysis Index 2
[2018-08-27] MEDS: ATIVAN IV PRN ×2 (05:49→23:43)
[2018-08-27] MEDS: MAG-OX PO SCH (09:13)
[2018-08-27] MEDS: PROTONIX PO SCH (09:13)
[2018-08-27] MEDS: LOPRESSOR PO SCH ×2 (09:13→21:11)
[2018-08-27] MEDS: VITAMIN B-1 PO SCH (09:13)
[2018-08-27] MEDS: BACTROBAN 2% TP SCH ×2 (09:14→21:13)
[2018-08-27] MEDS ORDERED: MAGNESIUM SULFATE 4GM/100ML 4 GM/100 ML BAG IV ONE (10:19)
[2018-08-27] MEDS ORDERED: K-DUR PO ONE (10:25)
--- NOTE | 2018-08-27 10:29 | Progress Note ---
Assessment and Plan Assessment and plan: --Hypokalemia; corrected --Hypomagnesemia replace per protocol and monitor levels --Alcohol withdrawal symptoms; [facility] protocol dced IV Ativan as needed for alcohol withdrawal symptoms and agitation Physical therapy as tolerated, supportive care --Acute kidney injury; resolved, secondary to vasomotor nephropathy Gentle hydration, avoid nephrotoxins, --Metabolic encephalopathy; multifactorial; mainly due to alcohol withdrawal Patient is alert awake oriented --Status post fall; no new fall since admission Fall precautions, physical therapy occupational therapy, supportive care --Superficial injuries, multiple x-rays reviewed --Left foot :Mildly displaced displaced intra-articular chip fracture of left foot middle phalanx second digit Left hand; nondisplaced fractures of the third distal phalanx Orthopedic evaluated the patient, splint applied, physical therapy --Alcoholic liver disease/transaminitis; Closely monitor, --H/O Chronic alcohol use; advised to quit,Thiamine and folic acid --DVT prophylaxis; Lovenox --Physical therapy and occupational therapy --DC planning, acute versus subacute rehabilitation versus home with home health in stable --Full CODE STATUS Discharge plan possible rehabilitation versus SNF versus home with home health History Interval history: Patient seen and examined medical records reviewed The patient is alert and awake responding appropriately No tremulousness or agitation Mild confusion at times Vital signs noted Patient's daughter and son at the bedside Hospitalist Physical - Constitutional Vitals: Temp Pulse Resp BP Pulse Ox 98.7 F 70 20 141/79 93 08/27/18 08:32 08/27/18 09:13 08/27/18 02:13 08/27/18 09:13 08/27/18 08:32 General appearance: Present: no acute distress, well-nourished, other (sedated) - EENT Eyes: Present: PERRL, EOM intact - Neck Neck: Present: supple, normal ROM - Respiratory Respiratory effort: normal Respiratory: bilateral: diminished, negative: rales, rhonchi, wheezing - Cardiovascular Rhythm: regular Heart Sounds: Present: S1 & S2 - Extremities Extremities: no ischemia, No edema - Abdominal General gastrointestinal: soft, non-tender, non-distended, normal bowel sounds - Integumentary Integumentary: Present: clear, warm - Psychiatric Psychiatric: appropriate mood/affect, cooperative - Neurologic Neurologic: moves all extremities Results - Labs CBC & Chem 7: 08/25/18 05:12 08/27/18 04:00 Labs: Laboratory Last Values WBC 4.3 K/mm3 (4.5-11.0) L 08/25/18 05:12 RBC 4.13 M/mm3 (3.65-5.03) 08/25/18 05:12 Hgb 14.4 gm/dl (11.8-15.2) 08/25/18 05:12 Hct 41.6 % (35.5-45.6) 08/25/18 05:12 MCV 101 fl (84-94) H 08/25/18 05:12 MCH 35 pg (28-32) H 08/25/18 05:12 MCHC 35 % (32-34) H 08/25/18 05:12 RDW 13.5 % (13.2-15.2) 08/25/18 05:12 Plt Count 73 K/mm3 (140-440) L 08/25/18 05:12 [place] % (Auto) Br[employer] Machine 08/25/18 05:12 Add Manual Diff Complete 08/25/18 05:12 Total Counted 100 08/25/18 05:12 Seg Neuts % (Manual) 60.0 % (40.0-70.0) 08/25/18 05:12 0 % 08/25/18 05:12 27.0 % (13.4-35.0) 08/25/18 05:12 Reactive Lymphs % (Man) 0 % 08/25/18 05:12 10.0 % (0.0-7.3) H 08/25/18 05:12 3.0 % (0.0-4.3) 08/25/18 05:12 0 % (0.0-1.8) 08/25/18 05:12 0 % 08/25/18 05:12 0 % 08/25/18 05:12 0 % 08/25/18 05:12 0 % 08/25/18 05:12 Nucleated RBC % Not Reportable 08/25/18 05:12 Seg Neutrophils # Man 2.6 K/mm3 (1.8-7.7) 08/25/18 05:12 Band Neutrophils # 0.0 K/mm3 08/25/18 05:12 1.2 K/mm3 (1.2-5.4) 08/25/18 05:12 Abs React Lymphs (Man) 0.0 K/mm3 08/25/18 05:12 0.4 K/mm3 (0.0-0.8) 08/25/18 05:12 0.1 K/mm3 (0.0-0.4) 08/25/18 05:12 0.0 K/mm3 (0.0-0.1) 08/25/18 05:12 0.0 K/mm3 08/25/18 05:12 0.0 K/mm3 08/25/18 05:12 0.0 K/mm3 08/25/18 05:12 Blast Cells # 0.0 K/mm3 08/25/18 05:12 WBC Morphology Not Reportable 08/25/18 05:12 Hypersegmented Neuts Not Reportable 08/25/18 05:12 Hyposegmented Neuts Not Reportable 08/25/18 05:12 Hypogranular Neuts Not Reportable 08/25/18 05:12 Not Reportable 08/25/18 05:12 Not Reportable 08/25/18 05:12 Not Reportable 08/25/18 05:12 Not Reportable 08/25/18 05:12 Not Reportable 08/25/18 05:12 Not Reportable 08/25/18 05:12 Consistent w auto 08/25/18 05:12 Not Reportable 08/25/18 05:12 Plt Clumps, EDTA Not Reportable 08/25/18 05:12 Not Reportable 08/25/18 05:12 Not Reportable 08/25/18 05:12 Not Reportable 08/25/18 05:12 Plt Morphology Comment Not Reportable 08/25/18 05:12 RBC Morphology Normal 08/25/18 05:12 Dimorphic RBCs Not Reportable 08/25/18 05:12 Not Reportable 08/25/18 05:12 Not Reportable 08/25/18 05:12 Not Reportable 08/25/18 05:12 Not Reportable 08/25/18 05:12 Not Reportable 08/25/18 05:12 Not Reportable 08/25/18 05:12 Not Reportable 08/25/18 05:12 Not Reportable 08/25/18 05:12 Not Reportable 08/25/18 05:12 Not Reportable 08/25/18 05:12 Not Reportable 08/25/18 05:12 Not Reportable 08/25/18 05:12 Not Reportable 08/25/18 05:12 Not Reportable 08/25/18 05:12 Not Reportable 08/25/18 05:12 Not Reportable 08/25/18 05:12 Not Reportable 08/25/18 05:12 Not Reportable 08/25/18 05:12 Not Reportable 08/25/18 05:12 Acanthocytes (Spur) Not Reportable 08/25/18 05:12 Rouleaux Not Reportable 08/25/18 05:12 Not Reportable 08/25/18 05:12 Not Reportable 08/25/18 05:12 Not Reportable 08/25/18 05:12 Not Reportable 08/25/18 05:12 Hem Pathologist Commnt No 08/25/18 05:12 PT 13.2 Sec. (12.2-14.9) 08/24/18 07:24 INR 0.95 (0.87-1.13) 08/24/18 07:24 APTT 22.5 Sec. (24.2-36.6) L 08/24/18 07:24 Sodium 139 mmol/L (137-145) 08/27/18 04:00 Potassium 3.3 mmol/L (3.6-5.0) L 08/27/18 04:00 Chloride 96.3 mmol/L (98-107) L 08/27/18 04:00 Carbon Dioxide 27 mmol/L (22-30) 08/27/18 04:00 19 mmol/L 08/27/18 04:00 BUN 16 mg/dL (9-20) 08/27/18 04:00 1.0 mg/dL (0.8-1.5) 08/27/18 04:00 Estimated GFR > 60 ml/min 08/27/18 04:00 16 % 08/27/18 04:00 Glucose 124 mg/dL (75-100) H 08/27/18 04:00 Calcium 9.1 mg/dL (8.4-10.2) 08/27/18 04:00 Phosphorus 3.00 mg/dL (2.5-4.5) 08/25/18 05:12 Magnesium 1.30 mg/dL (1.7-2.3) L 08/27/18 04:00 1.90 mg/dL (0.1-1.2) H 08/27/18 04:00 0.4 mg/dL (0-0.2) H 08/27/18 04:00 1.5 mg/dL 08/27/18 04:00 AST 92 units/L (5-40) H 08/27/18 04:00 ALT 113 units/L (7-56) H 08/27/18 04:00 53 units/L (35-129) 08/27/18 04:00 24.0 umol/L (25-60) L 08/24/18 07:24 289 units/L (55-170) H 08/24/18 04:30 < 0.010 ng/mL (0.00-0.029) 08/24/18 07:24 NT-Pro-B Natriuret Pep 243.5 pg/mL (0-900) 08/24/18 07:24 6.8 g/dL (6.3-8.2) 08/27/18 04:00 4.1 g/dL (3.9-5) 08/27/18 04:00 1.5 % 08/27/18 04:00 Yellow (Yellow) 08/24/18 Unknown Slightly-cloudy (Clear) 08/24/18 Unknown 6.0 (5.0-7.0) 08/24/18 Unknown Ur Specific [place] 1.021 (1.003-1.030) 08/24/18 Unknown 30 mg/dl mg/dL (Negative) 08/24/18 Unknown Neg mg/dL (Negative) 08/24/18 Unknown Tr mg/dL (Negative) 08/24/18 Unknown Neg (Negative) 08/24/18 Unknown Neg (Negative) 08/24/18 Unknown Neg (Negative) 08/24/18 Unknown < 2.0 mg/dL (<2.0) 08/24/18 Unknown Ur Leukocyte Esterase Neg (Negative) 08/24/18 Unknown 2.0 /HPF (0.0-6.0) 08/24/18 Unknown 1.0 /HPF (0.0-6.0) 08/24/18 Unknown Salicylates < 0.3 mg/dL (2.8-20.0) L 08/24/18 04:30 Presumptive negative 08/24/18 Unknown Presumptive negative 08/24/18 Unknown Acetaminophen < 5.0 ug/mL (10.0-30.0) L 08/24/18 04:30 Ur Barbiturates Screen Presumptive negative 08/24/18 Unknown Ur Phencyclidine Scrn Presumptive negative 08/24/18 Unknown Ur Amphetamines Screen Presumptive negative 08/24/18 Unknown U Benzodiazepines Scrn Presumptive positive 08/24/18 Unknown Presumptive negative 08/24/18 Unknown U Marijuana (THC) Screen Presumptive negative 08/24/18 Unknown Disclamer 08/24/18 Unknown Plasma/Serum Alcohol < 0.01 % (0-0.07) 08/24/18 04:30 Active Medications - Current Medications Current Medications: Generic Name Dose Route Start Last Admin Trade Name Freq PRN Reason Stop Dose Admin Acetaminophen 650 mg 08/24/18 09:56 08/24/18 10:58 Tylenol PO 650 mg Q4H PRN Administration Pain, Mild (1-3) Haloperidol Lactate 2 mg 08/25/18 09:01 08/27/18 02:05 Haldol IV 2 mg Q6H PRN Administration Unrespon. to mult. doses BZD's Hydralazine HCl 10 mg 08/25/18 21:58 Apresoline IV Q4HR PRN Blood Pressure Magnesium Sulfate 4 gm in 100 mls @ 25 mls/hr 08/27/18 10:19 Magnesium Sulfate 4gm/100ml IV 08/27/18 14:18 ONCE ONE Ketorolac Tromethamine 15 mg 08/24/18 15:00 08/24/18 15:10 Toradol IV 08/29/18 14:59 15 mg Q6H PRN Administration Pain, Mild (1-3) Lorazepam 0.5 mg 08/24/18 16:23 08/26/18 22:07 Ativan PO 0.5 mg Q4H PRN Administration Agitation Lorazepam 2 mg 08/26/18 19:03 08/27/18 05:49 Ativan IV 2 mg Q4H PRN Administration Agitation Magnesium Hydroxide 30 ml 08/25/18 18:27 Milk Of Magnesia PO QDAY PRN Constipation Magnesium Oxide 400 mg 08/25/18 10:00 08/27/18 09:13 Mag-Ox PO 400 mg QDAY KATHIE Administration Melatonin 5 mg 08/25/18 22:00 08/26/18 22:01 Melatonin PO 5 mg QHS KATHIE Administration Metoprolol Tartrate 50 mg 08/25/18 10:00 08/27/18 09:13 Lopressor PO 50 mg BID KATHIE Administration Mupirocin 1 applic 08/25/18 11:00 08/27/18 09:14 Bactroban 2% TP 1 applic BID KATHIE Administration Pantoprazole Sodium 40 mg 08/24/18 10:00 08/27/18 09:13 Protonix PO 40 mg QDAY KATHIE Administration Potassium Chloride 40 meq 08/27/18 10:25 K-Dur PO 08/27/18 10:26 ONCE ONE Pravastatin Sodium 80 mg 08/24/18 22:00 08/26/18 22:01 Pravachol PO 80 mg QHS KATHIE Administration Ropinirole HCl 1 mg 08/24/18 22:00 08/26/18 22:00 Requip PO 1 mg QHS KATHIE Administration Thiamine HCl 100 mg 08/24/18 11:00 08/27/18 09:13 Vitamin B-1 PO 100 mg QDAY KATHIE Administration
[2018-08-27] MEDS: BETADINE TP SCH (20:12)
[2018-08-27] MEDS: PRAVACHOL PO SCH (21:11)
[2018-08-27] MEDS: REQUIP PO SCH (21:11)
[2018-08-27] MEDS: ATIVAN PO PRN (21:11)
[2018-08-27] MEDS: MELATONIN PO SCH (21:12)
[2018-08-28] MEDS: HALDOL IV PRN (03:01)
[2018-08-28 05:15] LABS: BUN/Creatinine Ratio 15; Blood Urea Nitrogen 15 mg/dL (9-20); Calcium 9.7 mg/dL (8.4-10.2); Hemolysis Index 18
[2018-08-28] MEDS: LOPRESSOR PO SCH (09:22)
[2018-08-28] MEDS: VITAMIN B-1 PO SCH (09:23)
[2018-08-28] MEDS: BACTROBAN 2% TP SCH (09:23)
[2018-08-28] MEDS: MAG-OX PO SCH (09:23)
[2018-08-28] MEDS: PROTONIX PO SCH (09:23)
[2018-08-28] MEDS: TORADOL IV PRN (09:29)
[2018-08-28] MEDS ORDERED: MAGNESIUM SULFATE 4GM/100ML 4 GM/100 ML BAG IV ONE (14:00)
--- NOTE | 2018-08-28 14:04 | Progress Note ---
Assessment and Plan Assessment and plan: --Hypokalemia; corrected --Hypomagnesemia replace per protocol and monitor levels --Alcohol withdrawal symptoms; [facility] protocol dced IV Ativan as needed for alcohol withdrawal symptoms and agitation Physical therapy as tolerated, supportive care --Acute kidney injury; resolved, secondary to vasomotor nephropathy Gentle hydration, avoid nephrotoxins, --Metabolic encephalopathy; multifactorial; mainly due to alcohol withdrawal Patient is alert awake oriented --Status post fall; no new fall since admission Fall precautions, physical therapy occupational therapy, supportive care --Superficial injuries, multiple x-rays reviewed --Left foot :Mildly displaced displaced intra-articular chip fracture of left foot middle phalanx second digit Left hand; nondisplaced fractures of the third distal phalanx Orthopedic evaluated the patient, splint applied, physical therapy --Alcoholic liver disease/transaminitis; Closely monitor, --H/O Chronic alcohol use; advised to quit,Thiamine and folic acid --DVT prophylaxis; Lovenox --Physical therapy and occupational therapy --DC planning, acute versus subacute rehabilitation versus home with home health in stable --Full CODE STATUS Discharge plan possible rehabilitation versus SNF versus home with home health Hospitalist Physical - Constitutional Vitals: Temp Pulse Resp BP Pulse Ox 97.7 F 60 19 141/69 97 08/28/18 08:06 08/28/18 10:00 08/28/18 08:06 08/28/18 09:22 08/28/18 10:00 General appearance: Present: no acute distress, well-nourished, other (sedated) Results - Labs CBC & Chem 7: 08/25/18 05:12 08/28/18 04:03 Labs: Laboratory Last Values WBC 4.3 K/mm3 (4.5-11.0) L 08/25/18 05:12 RBC 4.13 M/mm3 (3.65-5.03) 08/25/18 05:12 Hgb 14.4 gm/dl (11.8-15.2) 08/25/18 05:12 Hct 41.6 % (35.5-45.6) 08/25/18 05:12 MCV 101 fl (84-94) H 08/25/18 05:12 MCH 35 pg (28-32) H 08/25/18 05:12 MCHC 35 % (32-34) H 08/25/18 05:12 RDW 13.5 % (13.2-15.2) 08/25/18 05:12 Plt Count 73 K/mm3 (140-440) L 08/25/18 05:12 Christian % (Auto) Safety Risk Lead 08/25/18 05:12 Add Manual Diff Complete 08/25/18 05:12 Total Counted 100 08/25/18 05:12 Seg Neuts % (Manual) 60.0 % (40.0-70.0) 08/25/18 05:12 0 % 08/25/18 05:12 27.0 % (13.4-35.0) 08/25/18 05:12 Reactive Lymphs % (Man) 0 % 08/25/18 05:12 10.0 % (0.0-7.3) H 08/25/18 05:12 3.0 % (0.0-4.3) 08/25/18 05:12 0 % (0.0-1.8) 08/25/18 05:12 0 % 08/25/18 05:12 0 % 08/25/18 05:12 0 % 08/25/18 05:12 0 % 08/25/18 05:12 Nucleated RBC % Not Reportable 08/25/18 05:12 Seg Neutrophils # Man 2.6 K/mm3 (1.8-7.7) 08/25/18 05:12 Band Neutrophils # 0.0 K/mm3 08/25/18 05:12 1.2 K/mm3 (1.2-5.4) 08/25/18 05:12 Abs React Lymphs (Man) 0.0 K/mm3 08/25/18 05:12 0.4 K/mm3 (0.0-0.8) 08/25/18 05:12 0.1 K/mm3 (0.0-0.4) 08/25/18 05:12 0.0 K/mm3 (0.0-0.1) 08/25/18 05:12 0.0 K/mm3 08/25/18 05:12 0.0 K/mm3 08/25/18 05:12 0.0 K/mm3 08/25/18 05:12 Blast Cells # 0.0 K/mm3 08/25/18 05:12 WBC Morphology Not Reportable 08/25/18 05:12 Hypersegmented Neuts Not Reportable 08/25/18 05:12 Hyposegmented Neuts Not Reportable 08/25/18 05:12 Hypogranular Neuts Not Reportable 08/25/18 05:12 Not Reportable 08/25/18 05:12 Not Reportable 08/25/18 05:12 Not Reportable 08/25/18 05:12 Not Reportable 08/25/18 05:12 Not Reportable 08/25/18 05:12 Not Reportable 08/25/18 05:12 Consistent w auto 08/25/18 05:12 Not Reportable 08/25/18 05:12 Plt Clumps, EDTA Not Reportable 08/25/18 05:12 Not Reportable 08/25/18 05:12 Not Reportable 08/25/18 05:12 Not Reportable 08/25/18 05:12 Plt Morphology Comment Not Reportable 08/25/18 05:12 RBC Morphology Normal 08/25/18 05:12 Dimorphic RBCs Not Reportable 08/25/18 05:12 Not Reportable 08/25/18 05:12 Not Reportable 08/25/18 05:12 Not Reportable 08/25/18 05:12 Not Reportable 08/25/18 05:12 Not Reportable 08/25/18 05:12 Not Reportable 08/25/18 05:12 Not Reportable 08/25/18 05:12 Not Reportable 08/25/18 05:12 Not Reportable 08/25/18 05:12 Not Reportable 08/25/18 05:12 Not Reportable 08/25/18 05:12 Not Reportable 08/25/18 05:12 Not Reportable 08/25/18 05:12 Not Reportable 08/25/18 05:12 Not Reportable 08/25/18 05:12 Not Reportable 08/25/18 05:12 Not Reportable 08/25/18 05:12 Not Reportable 08/25/18 05:12 Not Reportable 08/25/18 05:12 Acanthocytes (Spur) Not Reportable 08/25/18 05:12 Rouleaux Not Reportable 08/25/18 05:12 Not Reportable 08/25/18 05:12 Not Reportable 08/25/18 05:12 Not Reportable 08/25/18 05:12 Not Reportable 08/25/18 05:12 Hem Pathologist Commnt No 08/25/18 05:12 PT 13.2 Sec. (12.2-14.9) 08/24/18 07:24 INR 0.95 (0.87-1.13) 08/24/18 07:24 APTT 22.5 Sec. (24.2-36.6) L 08/24/18 07:24 Sodium 138 mmol/L (137-145) 08/28/18 04:03 Potassium 3.8 mmol/L (3.6-5.0) 08/28/18 04:03 Chloride 99.1 mmol/L (98-107) 08/28/18 04:03 Carbon Dioxide 28 mmol/L (22-30) 08/28/18 04:03 15 mmol/L 08/28/18 04:03 BUN 15 mg/dL (9-20) 08/28/18 04:03 1.0 mg/dL (0.8-1.5) 08/28/18 04:03 Estimated GFR > 60 ml/min 08/28/18 04:03 15 % 08/28/18 04:03 Glucose 152 mg/dL (75-100) H 08/28/18 04:03 Calcium 9.7 mg/dL (8.4-10.2) 08/28/18 04:03 Phosphorus 3.00 mg/dL (2.5-4.5) 08/25/18 05:12 Magnesium 1.30 mg/dL (1.7-2.3) L 08/28/18 04:03 1.90 mg/dL (0.1-1.2) H 08/27/18 04:00 0.4 mg/dL (0-0.2) H 08/27/18 04:00 1.5 mg/dL 08/27/18 04:00 AST 92 units/L (5-40) H 08/27/18 04:00 ALT 113 units/L (7-56) H 08/27/18 04:00 53 units/L (35-129) 08/27/18 04:00 24.0 umol/L (25-60) L 08/24/18 07:24 289 units/L (55-170) H 08/24/18 04:30 < 0.010 ng/mL (0.00-0.029) 08/24/18 07:24 NT-Pro-B Natriuret Pep 243.5 pg/mL (0-900) 08/24/18 07:24 6.8 g/dL (6.3-8.2) 08/27/18 04:00 4.1 g/dL (3.9-5) 08/27/18 04:00 1.5 % 08/27/18 04:00 Yellow (Yellow) 08/24/18 Unknown Slightly-cloudy (Clear) 08/24/18 Unknown 6.0 (5.0-7.0) 08/24/18 Unknown Ur Specific [place] 1.021 (1.003-1.030) 08/24/18 Unknown 30 mg/dl mg/dL (Negative) 08/24/18 Unknown Neg mg/dL (Negative) 08/24/18 Unknown Tr mg/dL (Negative) 08/24/18 Unknown Neg (Negative) 08/24/18 Unknown Neg (Negative) 08/24/18 Unknown Neg (Negative) 08/24/18 Unknown < 2.0 mg/dL (<2.0) 08/24/18 Unknown Ur Leukocyte Esterase Neg (Negative) 08/24/18 Unknown 2.0 /HPF (0.0-6.0) 08/24/18 Unknown 1.0 /HPF (0.0-6.0) 08/24/18 Unknown Salicylates < 0.3 mg/dL (2.8-20.0) L 08/24/18 04:30 Presumptive negative 08/24/18 Unknown Presumptive negative 08/24/18 Unknown Acetaminophen < 5.0 ug/mL (10.0-30.0) L 08/24/18 04:30 Ur Barbiturates Screen Presumptive negative 08/24/18 Unknown Ur Phencyclidine Scrn Presumptive negative 08/24/18 Unknown Ur Amphetamines Screen Presumptive negative 08/24/18 Unknown U Benzodiazepines Scrn Presumptive positive 08/24/18 Unknown Presumptive negative 08/24/18 Unknown U Marijuana (THC) Screen Presumptive negative 08/24/18 Unknown Disclamer 08/24/18 Unknown Plasma/Serum Alcohol < 0.01 % (0-0.07) 08/24/18 04:30 Active Medications - Current Medications Current Medications: Generic Name Dose Route Start Last Admin Trade Name Freq PRN Reason Stop Dose Admin Acetaminophen 650 mg 08/24/18 09:56 08/24/18 10:58 Tylenol PO 650 mg Q4H PRN Administration Pain, Mild (1-3) Haloperidol Lactate 2 mg 08/25/18 09:01 08/28/18 03:01 Haldol IV 2 mg Q6H PRN Administration Unrespon. to mult. doses BZD's Hydralazine HCl 10 mg 08/25/18 21:58 Apresoline IV Q4HR PRN Blood Pressure Magnesium Sulfate 4 gm in 100 mls @ 25 mls/hr 08/28/18 14:00 Magnesium Sulfate 4gm/100ml IV 08/28/18 17:59 ONCE ONE Ketorolac Tromethamine 15 mg 08/24/18 15:00 08/28/18 09:29 Toradol IV 08/29/18 14:59 15 mg Q6H PRN Administration Pain, Mild (1-3) Lorazepam 0.5 mg 08/24/18 16:23 08/27/18 21:11 Ativan PO 0.5 mg Q4H PRN Administration Agitation Lorazepam 2 mg 08/26/18 19:03 08/27/18 23:43 Ativan IV 2 mg Q4H PRN Administration Agitation Magnesium Hydroxide 30 ml 08/25/18 18:27 Milk Of Magnesia PO QDAY PRN Constipation Magnesium Oxide 400 mg 08/25/18 10:00 08/28/18 09:23 Mag-Ox PO 400 mg QDAY KATHIE Administration Melatonin 5 mg 08/25/18 22:00 08/27/18 21:12 Melatonin PO 5 mg QHS KATHIE Administration Metoprolol Tartrate 50 mg 08/25/18 10:00 08/28/18 09:22 Lopressor PO 50 mg BID KATHIE Administration Mupirocin 1 applic 08/25/18 11:00 08/28/18 09:23 Bactroban 2% TP 1 applic BID KATHIE Administration Pantoprazole Sodium 40 mg 08/24/18 10:00 08/28/18 09:23 Protonix PO 40 mg QDAY KATHIE Administration Pravastatin Sodium 80 mg 08/24/18 22:00 08/27/18 21:11 Pravachol PO 80 mg QHS KATHIE Administration Ropinirole HCl 1 mg 08/24/18 22:00 08/27/18 21:11 Requip PO 1 mg QHS KATHIE Administration Thiamine HCl 100 mg 08/24/18 11:00 08/28/18 09:23 Vitamin B-1 PO 100 mg QDAY KATHIE Administration
--- NOTE | 2018-08-28 15:14 | Discharge Summary ---
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 Chest x-ray Left foot :Mildly displaced displaced intra-articular chip fracture of left foot middle phalanx second digit Left hand; nondisplaced fractures of the third distal phalanx Hospital course: 73-year-old male patient was transported from [facility] where he has been since Tuesday in an alcohol detox program. Patient was sent to the emergency room with history of fall , unsure how he fell , proper history not available , and sustained multiple superficial injuries Parent reports that he was going to the bathroom and he slipped and fell on a wet floor. And later he reports that he was in the shower when he slipped and fell. He cannot account for this difference in history. He was given Ativan on arrival. He was apparently quite shaky. He had a pair of a laceration of his finger in dressing Patient was admitted symptomatically managed placed on CIWA protocol, Patient had extensive evaluation with multiple x-rays and CTs All of them are negative except for left foot mildly displaced intra-articular chip fracture of the middle phalanx second digit As well as left hand nondisplaced fractures of the third distal phalanx Patient was evaluated by orthopedic surgeon, and had splint applied to these digit fractures Patient was placed on CIWA protocol, received physical therapy occupational therapy Symptoms significantly improved, case management evaluated the patient and Assisted in discharge planning Family requested the clinical information be faxed to [facility] in [place] and [place] in [facility] , these are inpatient addiction centers Today patient is comfortable in no new complaints vital signs stable Physical examination unremarkable Hemodynamically and clinically stable at discharge Discharge diagnosis; And management --Alcohol withdrawal symptoms; [facility] protocol dced IV Ativan as needed for alcohol withdrawal symptoms and agitation Physical therapy as tolerated, supportive care --Acute kidney injury; resolved, secondary to vasomotor nephropathy Gentle hydration, avoid nephrotoxins, --Metabolic encephalopathy; multifactorial; mainly due to alcohol withdrawal Patient is alert awake oriented --Status post fall; no new fall since admission Fall precautions, physical therapy occupational therapy, supportive care --Superficial injuries, multiple x-rays reviewed --Left foot :Mildly displaced displaced intra-articular chip fracture of left foot middle phalanx second digit Left hand; nondisplaced fractures of the third distal phalanx Orthopedic evaluated the patient, splint applied, physical therapy --Alcoholic liver disease/transaminitis; Closely monitor, --Hypokalemia; corrected --Hypomagnesemia replace per protocol and monitor levels --H/O Chronic alcohol use; advised to quit,Thiamine and folic acid --DVT prophylaxis; Lovenox --Physical therapy and occupational therapy --DC planning, and home health And possible voluntary detox admission after evaluation by psych after discharge Disposition: DC-01 TO HOME OR SELFCARE Time spent for discharge: 32 min Core Measure Documentation - Palliative Care Palliative Care/ Comfort Measures: Not Applicable - Core Measures Any of the following diagnoses?: none Exam - Constitutional Vitals: Temp Pulse Resp BP Pulse Ox 97.7 F 60 19 141/69 97 08/28/18 08:06 08/28/18 10:00 08/28/18 08:06 08/28/18 09:22 08/28/18 10:00 General appearance: Present: no acute distress, well-nourished - EENT Eyes: Present: PERRL, EOM intact - Neck Neck: Present: supple, normal ROM - Respiratory Respiratory effort: normal Respiratory: negative: rales, rhonchi, wheezing - Cardiovascular Rhythm: regular Heart Sounds: Present: S1 & S2 - Extremities Extremities: no ischemia, No edema - Abdominal General gastrointestinal: Present: soft, non-tender, non-distended, normal bowel sounds - Integumentary Integumentary: Present: clear, warm - Musculoskeletal Musculoskeletal: strength equal bilaterally, generalized weakness - Psychiatric Psychiatric: appropriate mood/affect, cooperative - Neurologic Neurologic: CNII-XII intact, moves all extremities Plan Activity: advance as tolerated, fall precautions Diet: regular Additional Instructions: Patient advised to quit alcohol intake. The patient advised to go to voluntary alcohol detox /rehabilitation as needed. Fall precautions. Check BMP and magnesium levels in 3-4 days at PMDs office Follow up with: KATHRYN KUHN SR, MD [Primary Care Provider] - 3-5 Days ANTONIO LEMON MD [Staff Physician] - 7 Days Prescriptions: Mupirocin [Bactroban 2% OINT] 1 applic TP BID #1 tube Magnesium Oxide [Mag-Ox] 400 mg PO QDAY #10 tablet Pantoprazole [Protonix TAB] 40 mg PO QDAY #30 tablet
[2018-08-28 19:20] VITALS: BP 143/69
== END 2018-08-28 19:10 | disposition home or self-care (01) | DRG 70 ==
LOC: ED 04:02 → 2B-ACE 07:57
PROVIDERS: ADMIT Internal Medicine; ATTEND Internal Medicine
PROC: 0HQGXZZ Repair Left Hand Skin, External Approach (ICD-10-PCS; principal; 2018-08-24)
PROC: 3E0234Z Introduction of Serum, Toxoid and Vaccine into Muscle, Percutaneous Approach (ICD-10-PCS; 2018-08-24)
PROC: 2W3FX1Z Immobilization of Left Hand using Splint (ICD-10-PCS; 2018-08-25)
DX: G93.41 Metabolic encephalopathy (principal); N17.0 Acute kidney failure with tubular necrosis; S62.663B Nondisplaced fracture of distal phalanx of left middle finger, initial encounter for open fracture; F10.239 Alcohol dependence with withdrawal, unspecified; R55 Syncope and collapse; E87.6 Hypokalemia; E83.42 Hypomagnesemia; S92.912A Unspecified fracture of left toe(s), initial encounter for closed fracture; S00.81XA Abrasion of other part of head, initial encounter; S50.812A Abrasion of left forearm, initial encounter; W18.30XA Fall on same level, unspecified, initial encounter; Y93.89 Activity, other specified; Y92.89 Other specified places as the place of occurrence of the external cause; Y99.8 Other external cause status; S91.115A Laceration without foreign body of left lesser toe(s) without damage to nail, initial encounter; S80.02XA Contusion of left knee, initial encounter; K76.1 Chronic passive congestion of liver; Z23 Encounter for immunization
CPT/HCPCS: 36415; 70450; 70486; 71045; 72125; 80048; 80053; 80076; 80307; 80320; 81001; 82140; 82550; 83735; 83880; 84100; 84132; 84484; 85007; 85025; 85027; 85610; 85730; 90471; 90715; 93005; 93010; G0378; A9270-GY; G0480; J1630; J1885; J2060; J3411; J3475; J3480; J7030